=== PATIENT | male | born 1940 | race Caucasian/White ===

== ENCOUNTER 2017-11-22 19:43 | Inpatient (IN) | payer OTHER ==
--- NOTE | 2017-11-22 21:03 | EDPHY ---
H & P Stated Complaint: L hand swelling for 2 wks - Personal History Current Tetanus/Diphtheria Vaccine: Unsure Current Tetanus Diphtheria and Acellular Pertussis (TDAP): Unsure - Medical/Surgical History Hx Asthma: No Hx Chronic Respiratory Disease: No Hx Diabetes: No Hx Cardiac Disease: Yes Hx Renal Disease: No Hx Cirrhosis: No Hx Alcoholism: No Hx HIV/AIDS: No Hx Splenectomy or Spleen Trauma: No Other PMH: [id number] FUSION PROSTATE, HTN - Social History Smoking Status: Never smoked Time Seen by Provider: 11/22/17 21:00 HPI/ROS: CHIEF COMPLAINT: Left index finger swelling HISTORY OF PRESENT ILLNESS: 77-year-old immunocompetent male, up-to-date tetanus , left hand dominant states that starting on 11/04/2017 he noticed mild soft tissue swelling and pain to his left index finger, atraumatic. 3 days later on 11/07 he was started on Keflex monotherapy by his daughter who is a physician. He took this for 4 days and notes that it was improving and he therefore stopped the antibiotics. 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 PHYSICAL EXAM (Prior to examination, patient consented to physical exam, hands were washed and my usual and customary physical exam procedures followed) 1) GENERAL: Well-developed, well-nourished, alert and oriented. Appears to be in no acute distress. Comp, pleasant 2) HEAD: Normocephalic, atraumatic 3) HEENT: Pupils equal, round, reactive to light bilaterally. Sclera anicteric. 4) NECK: Full range of motion, no meningeal signs. 5) LUNGS: Clear auscultation bilaterally, no wheezes, no rhonchi, no retractions. 6) HEART: Regular rate and rhythm, no murmur, no heave, no gallop. 7) ABDOMEN: No guarding, no rebound, no focal tenderness, 8) MUSCULOSKELETAL: Left upper extremity: Patient has positive kanavel sign left index finger. Normal coloration, pain along the flexor tendon sheath, fusiform shape to the digit, pain with passive range of motion, finger kept slightly flexed 9) BACK: No visual or palpable abnormality 10) SKIN: No rash, no petechiae. DIFFERENTIAL DIAGNOSIS: In no particular include but limited to cellulitis, infectious tenosynovitis , septic arthritis, osteomyelitis (Yahaira,Fiorella Jayashree) Constitutional: Initial Vital Signs Temperature (C) 36.8 C 11/22/17 19:45 Heart Rate 55 L 11/22/17 19:45 Respiratory Rate 16 11/22/17 19:45 Blood Pressure 151/55 H 11/22/17 19:45 O2 Sat (%) 95 11/22/17 19:45 O2 Delivery Mode Room Air Allergies/Adverse Reactions: No Known Allergies Allergy (Unverified 05/16/14 23:14) Home Medications: Medication Instructions Recorded Cephalexin [Keflex (*)] 500 mg PO BID 11/23/17 Losartan Potassium [Cozaar 50 mg 100 mg PO HS 11/23/17 (*)] Sulfamethox/Tmp 800/160 mg 1 tab PO BID 11/23/17 [Bactrim Ds] Terazosin HCl [Hytrin 2 MG (*)] 2 mg PO HS 11/23/17 amLODIPine BESYLATE [Norvasc 5 mg 5 mg PO HS 11/23/17 (*)] Medical Decision Making ED Course/Re-evaluation: 9:10 p.m.: Patient has positive kanavel sign left index finger. Recommended admission to hospital. At this time I recommended admission to the hospital. Patient was surprised to hear this and requests time to make phone calls and discuss logistics before further interventions and before agreeing to admission. Patient also seen and examined by Dr Kaur in ER. 9:40 pm: Patient agrees to admission. 9:45 p.m.: Left voicemail for on-call hand surgery Dr. Tammy Villafana has been paged as well via the ER pilot plant research technician 10:05 pm: Hand surgery is paged again. 10:35 p.m.: No response from on-call hand surgery after multiple attempts. Dr. Agustín Puckett, on-call general orthopedics will be paged 1041 pm: Consultation with Dr Andre hospitalist who will admit patient primarily 10:58 p.m.: Patient noted to have pre renal azotemia. He has been given IV hydration while in the ER. 1107 pm: Phone consultation with Dr. Agustín Puckett , on-call orthopedics, who will have himself or have his partner evaluate the patient tomorrow. (Fiorella Syed) Other Provider: I evaluated and participated in the management of the patient. My co-signature indicates that I have reviewed this chart and I agree with thefindings and plan of care as documented. 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 Initially treated with keflex by mouth for 4 days with some improvment. Worsening pain and swelling today. No fever, erythema now resolved. On exam, left index finger has fusiform swelling, held in flexed position, discomfort along palmar aspect. Pain with extension. No erythema noted and no warmth. Sensation intact, brisk cap refill. Agree with plan for admission and hand consultation. Discussed my concerns and my recommendations with patient who agrees. (Giulia Kaur) - Data Points Laboratory Results: Laboratory Results 11/22/17 22:14 11/22/17 22:14 Medications Given: Cefazolin Sodium/Dextrose (Ancef 2 Gm (Premix)) 100 mls @ 200 mls/hr IV Q8HRS SANDI PRN Reason: Protocol Stop: 12/23/17 05:59 Last Admin: 11/23/17 05:31 Dose: 100 mls Sodium Chloride (Ns) 1,000 mls @ 125 mls/hr IV CONT SANDI Stop: 05/22/18 10:29 Last Admin: 11/23/17 10:47 Dose: 1,000 mls Oxycodone HCl (Oxycodone Ir) 5 - 10 mg PO Q3HRS PRN PRN Reason: Pain, Severe Able to Take PO Stop: 12/02/17 22:51 Last Admin: 11/23/17 02:15 Dose: 10 mg Discontinued Medications Cefazolin Sodium/Dextrose (Ancef 1 Gm (Premix)) 50 mls @ 200 mls/hr IV EDNOW ONE PRN Reason: Protocol Stop: 11/22/17 21:35 Last Admin: 11/22/17 22:41 Dose: 50 mls Sodium Chloride (Ns) 500 mls @ 0 mls/hr IV ONCE ONE PRN Reason: Wide Open Stop: 11/22/17 23:00 Last Admin: 11/23/17 00:10 Dose: 500 mls Departure - Departure Disposition: [facility] Acute Clinical Impression: Infectious tenosynovitis, Acute prerenal azotemia Condition: Fair
[2017-11-22 22:34] LABS: PLATELET COUNT 198 10^3/uL (150-400)
[2017-11-22] MEDS ORDERED: ONDANSETRON 4 MG/2 ML VIAL IVP PRN (22:52)
[2017-11-22] MEDS ORDERED: oxyCODONE IR 5 MG TAB PO PRN (22:52)
[2017-11-22] MEDS ORDERED: ONDANSETRON DISINTEGRATING 4 MG TAB PO PRN (22:52)
[2017-11-22] MEDS ORDERED: ACETAMINOPHEN 325 MG TAB PO PRN (22:52)
[2017-11-22] MEDS ORDERED: NS 500 ML IV ONE (22:59)
--- NOTE | 2017-11-23 04:40 | PDGENHP ---
History and Physical - Chief Complaint Hand swelling - History of Present Illness 77 yo M w/ BPH and CKD presents with hand swelling. Patient first noticed redness and swelling of L 2nd MCP around 11/04. He was prescribes Keflex as an outpatient, which he took for 4 days (last on 11/10). He did not finish the full prescribed course because he thought it improved significantly. Then, over the last few days, the swelling returned and spread to involve the palmar aspect of his hand and extended over to his 1st MCP as well. He denies systemic symptoms of infection. History Information - Allergies/Home Medication List Allergies/Adverse Reactions: No Known Allergies Allergy (Unverified 05/16/14 23:14) Home Medications: ATACAND 04/28/10 [Last Taken Unknown] Flomax 04/28/10 [Last Taken Unknown] I have personally reviewed and updated: family history, medical history - Past Medical History Additional medical history: BPH. CKD - Family History Positive for: cancer - Social History Smoking Status: Never smoked Review of Systems Review of Systems: ROS: 10pt was reviewed & negative except for what was stated in HPI & below Physical Exam Physical Exam: Temp Pulse Resp BP Pulse Ox 36.4 C 53 L 16 162/87 H 93 11/23/17 00:27 11/23/17 00:27 11/23/17 00:27 11/23/17 00:27 11/23/17 00:27 Constitutional: no apparent distress, not in pain Eyes: PERRL, EOMI Ears, Nose, Mouth, Throat: moist mucous membranes, no oral mucosal ulcers Cardiovascular: regular rate and rhythym, no murmur, rub, or gallop Respiratory: no respiratory distress, no rales or rhonchi Gastrointestinal: normoactive bowel sounds, soft, non-tender abdomen Skin: warm, other (Erythematous lesions over forehead and face R>L) Musculoskeletal: full muscle strength, other (Swelling and TTP involving L 2nd MCP with palmar extension to 1st digit) Neurologic: AAOx3, CN II-XII Intact Psychiatric: interacting appropriately, not anxious Lab Data & Imaging Review 11/22/17 22:14 11/22/17 22:14 WBC 9.53 10^3/uL (3.80-9.50) H 11/22/17 22:14 RBC 4.62 10^6/uL (4.40-6.38) 11/22/17 22:14 Hgb 13.0 g/dL (13.7-17.5) L 11/22/17 22:14 Hct 38.9 % (40.0-51.0) L 11/22/17 22:14 MCV 84.2 fL (81.5-99.8) 11/22/17 22:14 MCH 28.1 pg (27.9-34.1) 11/22/17 22:14 MCHC 33.4 g/dL (32.4-36.7) 11/22/17 22:14 RDW 15.1 % (11.5-15.2) 11/22/17 22:14 Plt Count 198 10^3/uL (150-400) 11/22/17 22:14 MPV 10.8 fL (8.7-11.7) 11/22/17 22:14 Neut % (Auto) 66.7 % (39.3-74.2) 11/22/17 22:14 Lymph % (Auto) 23.3 % (15.0-45.0) 11/22/17 22:14 [place]haw % (Auto) 8.4 % (4.5-13.0) 11/22/17 22:14 Eos % (Auto) 0.9 % (0.6-7.6) 11/22/17 22:14 Baso % (Auto) 0.4 % (0.3-1.7) 11/22/17 22:14 Nucleat RBC Rel Count 0.0 % (0.0-0.2) 11/22/17 22:14 Absolute Neuts (auto) 6.35 10^3/uL (1.70-6.50) 11/22/17 22:14 Absolute Lymphs (auto) 2.22 10^3/uL (1.00-3.00) 11/22/17 22:14 Absolute Monos (auto) 0.80 10^3/uL (0.30-0.80) 11/22/17 22:14 Absolute Eos (auto) 0.09 10^3/uL (0.03-0.40) 11/22/17 22:14 Absolute Basos (auto) 0.04 10^3/uL (0.02-0.10) 11/22/17 22:14 Absolute Nucleated RBC 0.00 10^3/uL (0-0.01) 11/22/17 22:14 Immature Gran % 0.3 % (0.0-1.1) 11/22/17 22:14 Immature Gran # 0.03 10^3/uL (0.00-0.10) 11/22/17 22:14 Sodium 138 mEq/L (134-144) 11/22/17 22:14 Potassium 5.2 mEq/L (3.5-5.2) 11/22/17 22:14 Chloride 104 mEq/L (97-110) 11/22/17 22:14 Carbon Dioxide 24 mEq/l (22-31) 11/22/17 22:14 Anion Gap 10 mEq/L (8-16) 11/22/17 22:14 BUN 33 mg/dL (7-23) H 11/22/17 22:14 Creatinine 1.5 mg/dL (0.7-1.3) H 11/22/17 22:14 Estimated GFR 45 11/22/17 22:14 Glucose 89 mg/dL (70-100) 11/22/17 22:14 Calcium 9.2 mg/dL (8.5-10.4) 11/22/17 22:14 Imaging Review: Imaging Impressions Hand X-Ray 11/22/17 20:55 Impression: Osteoarthritis. Assessment & Plan Assessment: 77 yo M w/ BPH and CKD presents with infection of L 2nd MCP. Plan: 1. L hand infection - Swelling and redness mostly involving L 2nd MCP now with some extension to first digit. Minimal signs of systemic involvement at this time. Hand XR unremarkable. - Cefazolin 2g IV q8h - Blood cultures ordered - Orthopedics consulted for further evaluation, appreciate assistance 2. CKD, Stage 3A - Essentially at baseline with serum creatinine of 1.5 on presentation. - Avoid nephrotoxic agents as able - Monitor BMP 3. BPH - On Flomax. Diet - Regular Code - Full Ppx - SCDs Dispo - Admit to observation status
[2017-11-23] MEDS: ceFAZolin 2 GM/DEXTROSE 100 ML IV SCH ×2 (05:31→13:42)
[2017-11-23 05:33] LABS: PLATELET COUNT 165 10^3/uL (150-400)
[2017-11-23] MEDS ORDERED: NS 1,000 ML IV SCH (10:30)
--- NOTE | 2017-11-23 10:35 | HOSPPROG ---
Hospitalist Progress Note Assessment/Plan: 77 yo M w hand infection hand: concerning for extensor tenosynovitis has had swelling for two weeks, rapidly progressive over last 24 hours cefazolin hand to see shortly NPO MRI per hand surgery ckd: cr at baseline proph: lmwh if in hospital longer than 24 hours pain: oxycodone dispo: change o inpatient Subjective: case d/w dr gonzalez, hand surrgery. patient anxious re: plan Objective: Vital Signs Temp Pulse Resp BP Pulse Ox 36.8 C 50 L 18 131/56 H 92 11/23/17 07:25 11/23/17 07:25 11/23/17 07:25 11/23/17 07:25 11/23/17 07:25 Laboratory Results 11/23/17 05:03 11/23/17 05:03 11/22/17 11/23/17 11/24/17 05:59 05:59 05:59 Intake Total 50 Balance 50 - Physical Exam Constitutional: no apparent distress, appears nourished Eyes: PERRL, anicteric sclera Ears, Nose, Mouth, Throat: moist mucous membranes, hearing normal Cardiovascular: regular rate and rhythym, no murmur, rub, or gallop Respiratory: no respiratory distress, no rales or rhonchi Gastrointestinal: normoactive bowel sounds, soft, non-tender abdomen Genitourinary: no bladder fullness, No smith in urethra Skin: warm, normal color Musculoskeletal: other (L hand w swelling over 2nd and third dp joints w severe pain w flexion and extension. no lymphangitic streaking) ICD10 Worksheet Patient Problems: Problems Problem Status Onset Acute prerenal azotemia Acute Infectious tenosynovitis Acute
[2017-11-23] MEDS ORDERED: GADOBUTROL 10 ML VIAL IVP ONE (11:40)
--- NOTE | 2017-11-23 11:52 | ASMTCASEMG ---
Living Arrangements What is your living Answers: Alone arrangement? Who do you live with? Type Of Residence What kind of residence do Answers: House you live in? Discharge Plan Comments Coordination Status Comments Notes: Pt is a 77 y/o man admitted with an infection tenosynovitis left index finger. Ortho is consulting. Pt will most likely d/c independent when medically stable. No therapies ordered at this time. CM available for changes. Plan: Independent Date Signed: 11/23/2017 11:51 AM Electronically Signed By:JAMES Peng
--- NOTE | 2017-11-23 15:31 | PDCONSULT ---
Typewriter Operator Automatic Note: Hand Surgery Consult The patient is a 77 year old male who complains of pain in his left hand off and on for approximately two weeks. He was initially placed on Keflex which he took for four days and was responding but discontinued them on his own. Over the last three days, he reports that his symptoms have become more intense with more swelling. The pain is migrating to his index and thumb. Hand Exam: He has a localized area of tenderness at the volar index MCP joint. He has mild tenderness along the flexor tendon sheath at the base of the MCP joint and proximalmost proximal phalanx. There is no fusiform edema in the thumb or index fingers. He has mild erythema, particularly over is dorsal index and long MCP joints.. He has mild edema most prominant on the dorsal hand. There is no fluctuance or induration in the palm, index fingers, or the thumb. He has normal flexor and extensor tenodesis. He has no sensory deficits. His hand, wrist and fingers are well perfused. He has a normal cascade. He has no gross rotation or angulation. There are no open wounds. Assessment/Plan; Delightful 77-year-old male who likely has a mild cellulitis versus possible gout. He does not have evidence of a fulminant flexor tenosynovitis. The pathophysiology of his possible conditions, normal course, and treatment options were discussed with him in detail. We will obtain an MRI to evaluate for fluid in the tendon sheath or another possible surgical conditions. In the meantime, we will keep him NPO with IV fluids. Addendum: The patient underwent an MRI which was consistent with a small abscess at the A1 jennie and a mild localized tenosynovitis around the index MCP joint and proximalmost proximal phalanx. The infectious disease service was called to manage his antibiotic coverage. If his symptoms worsen despite antibiotics or his exam is more significant in the morning, we will take him to surgery for an abscess drainage. In the meantime, the patient may be placed on a diet and made nothing by mouth after midnight. Thank you very much for the consultation. It is a pleasure to be involved in Mr. Donaldson's care.
--- NOTE | 2017-11-23 16:14 | PDMN ---
Medical Necessity Medical necessity: M70 cellulitis- ongoing IV abx needed for abscess/ tenosynovitis of index finger with poss abscess drainage needed in am, > 2 midnights ongoing med nec care
[2017-11-23] MEDS: VANCOMYCIN 750 MG in D5W 150 ML IV SCH (17:40)
[2017-11-23] MEDS ORDERED: ZOLPIDEM TARTRATE 5 MG TAB PO PRN (20:16)
[2017-11-23] MEDS: LOSARTAN POTASSIUM 50 MG TAB PO SCH (20:42)
[2017-11-23] MEDS: TERAZOSIN HCL 2 MG CAP PO SCH (20:42)
[2017-11-23] MEDS: amLODIPine BESYLATE 5 MG TAB PO SCH (20:42)
[2017-11-24] MEDS: VANCOMYCIN 750 MG in D5W 150 ML IV SCH ×2 (08:31→16:07)
--- NOTE | 2017-11-24 09:14 | PCMIDPN ---
Assessment/Plan: # Left hand cellulitis, tenosynovitis and small abscess adjacent to the volar aspect of the tendon sheath of the 2nd MCP joint, decreased pain today but still with significant swelling of the dorsal and volar aspect of the hand including the 2nd digit. --the continue vancomycin 750 mg IV daily --check trough before 3rd dose due to low renal function --surgery to re-assess need for surgery this afternoon, but strongly suspect will need debridement for resolution --discussed need for IV antibiotics following discharge and PICC line # renal insufficiency with a history of difficulty voiding, creatinine clearance in the 30 --check renal ultrasound with a postvoid residual meds vancomycin 750mg IV daily #2 micro blood cx (2) NGTD Subjective: Reports pain is about 20% improved Feeling stir crazy Objective: Vital Signs Temp Pulse Resp BP Pulse Ox 36.7 C 52 L 18 109/58 L 93 11/24/17 07:22 11/24/17 07:22 11/24/17 07:22 11/24/17 07:22 11/24/17 07:22 Laboratory Results 11/24/17 05:42 11/23/17 11/24/17 11/25/17 05:59 05:59 05:59 Intake Total 600 Balance 600 C-Reactive Protein < 5.0 mg/L (<10.0) 11/23/17 15:54 - Physical Exam General Appearance: alert, no apparent distress Respiratory: No accessory muscle use Extremities: swelling (Left hand particularly with 2nd digit and dorsal surface over 2nd and 3rd MCP joints), erythema (Over dorsal surface of 2nd and 3rd MCP joints), other (Tenderness at the base of the 2nd digit, volar surface slight improvement) Neuro/Psych: alert, normal mood/affect, oriented x 3 - Time Spent With Patient Time Spent with Patient: greater than 35 minutes (Coordination of care with Dr. Elaine and Dr. Quiñonez. Dr. Shelby Curtis his [id number] was also contacted) Time Spent with Patient: Greater than 35 minutes spent on this patients care, greater than 50% of time spent counseling, educating, and coordinating care regarding the above mentioned plan. ICD10 Worksheet Patient Problems: Problems Problem Status Onset Acute prerenal azotemia Acute Infectious tenosynovitis Acute
--- NOTE | 2017-11-24 09:23 | HOSPPROG ---
Hospitalist Progress Note Assessment/Plan: 77 yo M w hand infection hand: MRI w small abscess on flexor tendon as well as flexor tenosynovitis, myositis of thenar muscles and joint effusion concerning for joint space infection this is c/w exam continue vancomycin will d/w hand surgery- this clinical scenario appears to be a clear indication for surgery ckd: cr at baseline proph: lmwh if in hospital longer than 24 hours pain: oxycodone dispo: change o inpatient Subjective: case d/w dr way. hand perhaps a bit better but still unable to flex first finger Objective: Vital Signs Temp Pulse Resp BP Pulse Ox 36.7 C 52 L 18 109/58 L 93 11/24/17 07:22 11/24/17 07:22 11/24/17 07:22 11/24/17 07:22 11/24/17 07:22 Laboratory Results 11/24/17 05:42 11/23/17 11/24/17 11/25/17 05:59 05:59 05:59 Intake Total 600 Balance 600 - Physical Exam Constitutional: no apparent distress, appears nourished Eyes: PERRL, anicteric sclera Ears, Nose, Mouth, Throat: moist mucous membranes, hearing normal Cardiovascular: regular rate and rhythym, no murmur, rub, or gallop Respiratory: no respiratory distress, no rales or rhonchi Gastrointestinal: normoactive bowel sounds, soft, non-tender abdomen Genitourinary: no bladder fullness, No smith in urethra Skin: warm, normal color, mottled Musculoskeletal: other (edematous dorsum of hand. inability to flex secomd ( index) finger. no lymphangitic streaking) Neurologic: AAOx3, sensation intact bilaterally ICD10 Worksheet Patient Problems: Problems Problem Status Onset Acute prerenal azotemia Acute Infectious tenosynovitis Acute
--- NOTE | 2017-11-24 09:59 | GCON ---
[f rep st] CONSULTATION INFECTIOUS DISEASE CONSULTATION PROVIDER REQUESTING CONSULTATION: Tammy Villafana MD. REASON FOR CONSULTATION: Is left hand infection. HISTORY OF PRESENT ILLNESS: This is a 77-year-old left-hand dominant male who is in generally good h ealth who presents with progressive left hand pain. Patients problems date back to 04 of November w hen he noticed left index finger pain. He subsequently requested assistance from his family member wh o is a physician, and they prescribed Keflex plus prednisone on 07 of November. After approximately 3-4 days, patient stopped taking the therapy because his symptoms improved. He did continue to have some index finger swelling, but 3 days ago, he had markedly increased pain on the dorsal, palmar, and thumb, as well as associated swelling. He did describe chills on admission 11/22/17. The patient was admitted to the hospital and started on cefazolin and Hand Surgery was consulted. MRI was subsequent ly performed which showed cellulitis of the 2nd and 3rd metacarpal joints and proximal phalanx, more prominent on the 2nd. There is also myositis of the thenar musculature and mild tenosynovitis of the flexor digitorum longus at the 2nd finger with an adjacent volar abscess to the tendon sheath at the level of the 2nd metacarpal phalangeal joint and proximal phalanx, mild joint effusion as well at the 2nd MCP. ID was consulted for antibiotic management. The patient reports no improvement in his hand since admission. Has received 2 doses of cefazolin. Patient adamantly denies any specific injuries or bites to his hands. PAST MEDICAL HISTORY: BPH, chronic renal insufficiency with a creatinine clearance around 40, hypert ension, and thyromegaly. PAST SURGICAL HISTORY: Right knee surgery, lumbar surgery, rotator cuff repair bilaterally. SOCIAL HISTORY: Two children. His son is to a provider in [employer]. No tobacco. He is . He has a dog. Exercises regularly. In fact, he is an avid skier, runner, and biker. 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 FAMILY HISTORY: Positive for lung and prostate cancer. ALLERGIES: GEREMIAS inhibitors cause a cough. REVIEW OF SYSTEMS: A complete 10-point review of systems was performed and is negative except as men tioned in HPI. PHYSICAL EXAM: BP 149/62, heart rate 46, respiratory rate 18, saturation 97% on room air, temperatur e he has been afebrile throughout his hospital course, T-max is 36.7. GENERAL: This is a pleasant, no ntoxic-appearing male, sitting in bed in no acute distress. HEENT: Pupils are reactive bilaterally. O ropharynx: Moist mucous membranes. Good dentition. NECK: Supple. No lymphadenopathy. CARDIOVASCULAR: Bradycardic. No murmurs. CHEST: Clear to auscultation bilaterally. ABDOMEN: Soft, nontender. Bowel so unds are present. EXTREMITIES: No clubbing, cyanosis, or edema for the exception of his left hand swe lling which he had some generalized hand swelling, but most prominent over the 1st and 2nd digits and over the 2nd and 3rd MCPs with significant tenderness on the palmar surface at the base of his 2nd f matthew. No fluctuance is determined. His range of motion of his wrist is intact. He has a limited rang e of motion of his 2nd MCP. Pulses are bounding at the radial position. NEUROLOGIC: He is alert and o riented x4. Moving all 4 extremities equally with fluent speech. LABORATORY: Initial white count 9.3, today 6.9; hematocrit 33, platelets of 165, 56% neutrophils, 31 % lymphocytes. Creatinine is at his baseline 1.4. Blood cultures were obtained on admission. IMAGING: As per HPI. ASSESSMENT AND PLAN: This is a 77-year-old male with chronic renal insufficiency, otherwise healthy and very active, who presents with left hand cellulitis, volar abscess at the base of the 2nd digit, as well as possible septic arthritis of the 2nd MCP. Certainly, initially in the differential diagnos is was gout, but abscess in the volar surface/as well as myositis makes this unlikely. The patient do es not remember the last time he received antibiotics and it has been years, has low risk for MRSA, b ut abscess formation more suggestive of Staph. Therefore, to cover all possibilities, we will transit ion to vancomycin. In addition, would elevate hand. I suspect patient will likely need debridement, b ut awaiting 24 hours of antibiotics and elevation and reassess in the morning after discussion with Bertha vides. Suspect the portal of entry has to do with likely multiple skin tears in the hand. Patient's pathogenesis of infection, including skin tears, primary pathogens of staph and strep, juan manuel tment, potential need for surgery, and continued hospitalization past 24 hours were all discussed wit h patient extensively. Also discussed the plan of care with patient's [id number] per his request . Time was 75 minutes with greater than 50% of the time spent with education and counseling as describe d above. In addition, extensively reviewed potential toxicities of vancomycin and renal dosing, as we ll as measurement of levels. Thank you for this consultation. We will continue to see on a daily basis. /[id number]/MODL
[2017-11-24] MEDS: LOSARTAN POTASSIUM 50 MG TAB PO SCH (20:17)
[2017-11-24] MEDS: amLODIPine BESYLATE 5 MG TAB PO SCH (20:17)
[2017-11-24] MEDS: TERAZOSIN HCL 2 MG CAP PO SCH (20:17)
[2017-11-25] MEDS ORDERED: ENOXAPARIN 30 MG/0.3 ML SYR SC SCH (09:00)
--- NOTE | 2017-11-25 09:09 | PCMIDPN ---
Assessment/Plan: # Left hand cellulitis, tenosynovitis and small abscess adjacent to the volar aspect of the tendon sheath of the 2nd MCP joint and possible septic arthritis 2nd MCP joint, some decreased swelling noted today but still remarkable tenderness over flexor tendon of 2nd digit --still suspect that surgery needed to completely resolve infection, have requested 2nd opinion from Dr. Puckett --continue vancomycin, check trough today # renal insufficiency with a history of difficulty voiding, creatinine clearance in the 30, Cr stable today. US showed mild hydro and large prostate --urology eval as outpatient meds vancomycin 750mg IV daily #3 micro blood cx (2) NGTD Subjective: slept well last night no diarrhea Slight improvement in hand pain Objective: Vital Signs Temp Pulse Resp BP Pulse Ox 36.9 C 43 L 16 131/57 H 94 11/25/17 07:26 11/25/17 07:26 11/25/17 07:26 11/25/17 07:26 11/25/17 07:26 Laboratory Results 11/25/17 04:52 11/24/17 11/25/17 11/26/17 05:59 05:59 05:59 Intake Total 600 750 Balance 600 750 C-Reactive Protein < 5.0 mg/L (<10.0) 11/23/17 15:54 General Appearance: alert, no apparent distress Respiratory: No accessory muscle use Extremities:Left hand swelling and erythema particularly with 2nd digit and dorsal surface over 2nd and 3rd MCP joints but 30% improved today, Tenderness at the base of the 2nd digit, and significant tenderness on along the flexor surface of 2nd digit Neuro/Psych: alert, normal mood/affect, oriented x 3 - Time Spent With Patient Time Spent with Patient: greater than 35 minutes (including coordinating care with Dr. Elaine) Time Spent with Patient: Greater than 35 minutes spent on this patients care, greater than 50% of time spent counseling, educating, and coordinating care regarding the above mentioned plan. ICD10 Worksheet Patient Problems: Problems Problem Status Onset Acute prerenal azotemia Acute Infectious tenosynovitis Acute
--- NOTE | 2017-11-25 10:26 | ASMTCMCOM ---
CM Note CM Note Notes: Dc needs still unclear, may have surgery and/or need IV abx. CM faxed referral to [facility] to run benefits. Patient is otherwise independent. DC Plan: TBD Date Signed: 11/25/2017 10:25 AM Electronically Signed By:Astrid Painter RN
--- NOTE | 2017-11-25 11:34 | HOSPPROG ---
Hospitalist Progress Note Assessment/Plan: 77 yo M w hand infection hand: MRI w small abscess on flexor tendon as well as flexor tenosynovitis, myositis of thenar muscles and joint effusion concerning for joint space infection this is c/w exam continue vancomycin will d/w hand surgery- this clinical scenario appears to be a clear indication for surgery patient and family request second opinion believing that surgical management is indicated ckd: cr at baseline proph: start lmwh 11/26 pain: oxycodone dispo: change to inpatient Subjective: case d/w dr way. still w inabilty to flex finger Objective: Vital Signs Temp Pulse Resp BP Pulse Ox 36.9 C 43 L 16 131/57 H 94 11/25/17 07:26 11/25/17 07:26 11/25/17 07:26 11/25/17 07:26 11/25/17 07:26 Laboratory Results 11/25/17 04:52 11/24/17 11/25/17 11/26/17 05:59 05:59 05:59 Intake Total 600 750 Balance 600 750 - Physical Exam Constitutional: no apparent distress, appears nourished Eyes: PERRL, anicteric sclera Ears, Nose, Mouth, Throat: moist mucous membranes, hearing normal Cardiovascular: regular rate and rhythym, no murmur, rub, or gallop Respiratory: no respiratory distress, no rales or rhonchi Gastrointestinal: normoactive bowel sounds, soft, non-tender abdomen Genitourinary: no bladder fullness, No smith in urethra Skin: warm, normal color Musculoskeletal: full muscle strength, other (hand w less erythema and swelling but finger unchanged. still w evidence of flexor tenosynovitis) Neurologic: AAOx3 Psychiatric: interacting appropriately, not anxious ICD10 Worksheet Patient Problems: Problems Problem Status Onset Acute prerenal azotemia Acute Infectious tenosynovitis Acute
[2017-11-25] MEDS ORDERED: LIDOCAINE 1% 300 MG/30 ML SDV ONE (12:44)
[2017-11-25] MEDS ORDERED: BACITRACIN ZINC 14.2 GM OINTTUBE TP ONE (12:44)
[2017-11-25] MEDS ORDERED: BUPIVACAINE 0.5% 30 ML SDV ONE (12:45)
[2017-11-25] MEDS ORDERED: LR 1,000 ML IV ONE (13:20)
--- NOTE | 2017-11-25 13:24 | PDANEPAE ---
ANE History of Present Illness I&D of L hand ANE Past Medical History - Cardiovascular History Hx Hypertension: Yes Hx Arrhythmias: No Hx Chest Pain: No Hx Coronary Artery / Peripheral Vascular Disease: No - Pulmonary History Hx COPD: No Hx Oxygen in Use at Home: No Hx Sleep Apnea: No Sleep Apnea Screening Result - Last Documented: Positive - Endocrine History Hx Diabetes: No Hypothyroid: No Hyperthyroid: No Obesity: no - Renal History Hx Renal Disorders: Yes Renal History Comment: chronic kidney disease - Liver History Hx Hepatic Disorders: No - Neurological & Psychiatric Hx Hx Neurological and Psychiatric Disorders: No - Cancer History Hx Cancer: No - GI History GERD: no Hx Gastrointestinal Disorders: No - Other Health History Other Health History: BPH - Chronic Pain History Chronic Pain: No - Surgical History Prior Surgeries: shoulders, knee, back surgery ANE Review of Systems Review of Systems: ANE Patient History - Allergies Allergies/Adverse Reactions: No Known Allergies Allergy (Unverified 05/16/14 23:14) - Home Medications Home Medications: Cephalexin [Keflex (*)] 500 mg PO BID 11/23/17 [Last Taken 11/22/17 09:00] Losartan Potassium [Cozaar 50 mg (*)] 100 mg PO HS 11/23/17 [Last Taken 11/21/17 ] Sulfamethox/Tmp 800/160 mg [Bactrim Ds] 1 tab PO BID 11/23/17 [Last Taken Unknown] Terazosin HCl [Hytrin 2 MG (*)] 2 mg PO HS 11/23/17 [Last Taken 11/21/17] amLODIPine BESYLATE [Norvasc 5 mg (*)] 5 mg PO HS 11/23/17 [Last Taken 11/21/17] - NPO status NPO Since - Liquids (Date): 11/24/17 NPO Since - Liquids (Time): 21:00 NPO Since - Solids (Date): 11/24/17 NPO Since - Solids (Time): 21:00 - Smoking Hx Smoking Status: Never smoked ANE Labs/Vital Signs - Labs Result Diagrams: 11/23/17 05:03 11/25/17 04:52 - Vital Signs Blood Pressure: 146/67 Heart Rate: 57 Respiratory Rate: 16 O2 Sat (%): 97 Height: 165.1 cm Weight: 61.235 kg ANE Physical Exam - Airway Neck exam: FROM Mallampati Score: Class 1 - Pulmonary Pulmonary: no respiratory distress - Cardiovascular Cardiovascular: regular rate and rhythym - ASA Status ASA Status: II ANE Anesthesia Plan Anesthesia Plan: GA w LMA
[2017-11-25] MEDS ORDERED: MIDAZOLAM 2 MG/2 ML VIAL IVP ONE (13:28)
[2017-11-25] MEDS ORDERED: MIDAZOLAM 2 MG/2 ML VIAL ONE (13:30)
[2017-11-25] MEDS ORDERED: PROPOFOL 200 MG/20 ML VIAL ONE ×2 (13:36→14:12)
[2017-11-25] MEDS ORDERED: fentaNYL 100 MCG/2 ML INJ ONE ×2 (13:36→14:28)
[2017-11-25] MEDS ORDERED: ONDANSETRON 4 MG/2 ML VIAL ONE (13:38)
[2017-11-25] MEDS ORDERED: DEXAMETHASONE 4 MG/ML VIAL ONE (13:38)
[2017-11-25] MEDS ORDERED: LR 1,000 ML IV SCH (14:00)
[2017-11-25] MEDS ORDERED: CHLORHEXIDINE GLUC HIBICLENS 118 ML BTL TP ONE (14:00)
--- NOTE | 2017-11-25 14:44 | GCON ---
[f rep st] CONSULTATION DATE OF CONSULTATION: 11/25/2017 ADMIT DIAGNOSIS: Flexor tenosynovitis, left index finger. 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 This was persistent and on , he was started on Keflex by his daughter who is a physician. He took this for 4 days approximat christiane and noticed that it was slightly improving and subsequently stopped the antibiotics. He did cont inue to have swelling. The day prior to presentation, he had the acute onset of swelling, pain and p rogression into his palm with large swelling to his finger, limited range of motion and sharp pain wi th direct pressure over his palm. He therefore presented to the emergency department for further eval uation. PAST MEDICAL HISTORY: He has BPH. SURGICAL HISTORY: See chart. MEDICATIONS: Flomax and Atacand. 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 REVIEW OF SYSTEMS: Negative for current chest pain, shortness of breath, belly pain, back pain, numb ness, tingling, other joint-related complaints. PHYSICAL EXAMINATION: GENERAL: Objectively, this is a healthy gentleman seated in the bedside chair , pleasant and cooperative with examination. VITAL SIGNS: Current vital signs demonstrate a blood p ressure 146/67, heart rate is 57, he is 97% oxygen saturation, his temperature is 36.5. EXTREMITIES: Examination of his left upper extremity reveals two abrasions that are healing over the dorsal surfac e of his index finger across the proximal phalanx. There is fusiform swelling of the finger. It is he ld in a slightly flexed position. He has blanching of the superficial skin with any active flexion. He is capable of active flexion of his digit with 10 degrees flexion at the MCP, 30 degrees flexion a t the PIP and 20 degrees of flexion at the DIP joint. This is associated with mild discomfort across his palm. He has no other swelling to his thumb, long, ring or small fingers. He has slight swelli ng in the palm at the distal palmar crease along the index finger and through the thenar eminence. H e has focal tenderness at the entrance to the flexor tendon sheath of his index finger. This tendern ess extends down the flexor tendon to the level of the PIP joint. There is no tenderness dorsally. T here is no lymphangitic streaking or erythema. IMAGING STUDIES: An MRI obtained on 11/23, is reviewed and demonstrates cellulitis through his index and long finger through the proximal hand and palmar crease up into the thenar area where there is a ssociated myositis. There is mild tenosynovitis of the flexor tendon longus at the 2nd finger with a n adjacent abscess on the volar tendon sheath and there is a joint effusion of the 2nd metacarpophala ngeal joint. IMPRESSION: Flexor tenosynovitis with hand abscess. TREATMENT PLAN: He has been under the recommendations of a hand surgeon, Dr. Tammy Villafana, who has ma naged this with IV antibiotics with the assistance of Infectious Disease. The surrounding cellulitis and swelling have improved. His pain has improved. His range of motion has improved. However, give n the presence of an absence on the MRI and focal tenderness at the entrance to his flexor sheath, I still believe he has a clinical diagnosis of flexor tenosynovitis. I would recommend operative inter vention with irrigation and debridement, and additional IV antibiotics as appropriate. I have discuss ed this with the patient's hospitalist, Dr. Mandeep Elaine. I will discuss this with Dr. Tammy Villafana. ADDENDUM: I had initially set the patient up for operative irrigation and debridement, and Dr. Villafana has now been involved and will proceed with the debridement herself. /[id number]/MODL
--- NOTE | 2017-11-25 15:52 | SUROPNOTE ---
[facility] Operative Report - Surgery Operative Report Preop Diagnosis: Palmar flexor tenosynovitis left index finger Postop Diagnosis: Same Surgeon: Dr. Villafana Anesthesia: General Complications: None Findings: 1. Localized Tenosynovitis of the Left Index Finger at the A1 jennie 2. Inflammation of the soft tissue of the left palm and volar index at the level of the proximal phalanx Disposition: Stable to the recovery room Procedure Note: The patient was placed in supine position. General anesthesia was administered. Patient was prepped and draped in the usual sterile fashion. An Esmarch was used to exsanguinate the upper extremity and the tourniquet was applied to 250 mmHg. An oblique incision was made over the area of localized tenderness in the left palm. The soft tissue was bluntly dissected down to the flexor tendon sheath. The tendons were bathed in approximately 0.2 cc of murky fluid. The fluid was cultured and then flushed out with 200 cc of sterile saline. A full exploration was performed and no christi abscess was identified. The tendon sheath of the index finger was found to have a localized area of thickened tenosynovium just distal to the A1 jennie. This was excised and sent for pathology. A full tenolysis was performed in the involved area and the A1 jennie was released. An oblique incision was then made over the proximal phalanx of the index finger. The soft tissue was bluntly dissected down to the flexor tendon sheath. Some inflammatory changes were noted in the soft tissue at the level of the A2 jennie along with scant fluid. This was similarly flushed out with normal saline. The sheath and tendons were found to be free of inflammatory changes and no fluid was identified in the flexor tendon sheath. An 18-gauge Angiocath was introduced into the tendon sheath, which was thoroughly flushed in all directions with 1000 cc of normal saline. The fluid from the washout was clear. Finally, the volar MCP joint capsule was explored. No abnormal fluid, inflammatory changes, or other pathology was identified. Both wounds were closed loosely with interrupted 5-0 nylon. Bacitracin Xeroform were applied, followed by a dry sterile dressing. The patient tolerated the procedure well. His fingers were noted to be pink and well perfused at the end of the procedure. His disposition was stable to the recovery room.
[2017-11-25] MEDS ORDERED: VANCOMYCIN 1 GM in D5W 250 ML IV SCH (17:00)
[2017-11-25] MEDS: VANCOMYCIN 750 MG in D5W 150 ML IV SCH (17:15)
--- NOTE | 2017-11-25 17:38 | PDIAF ---
- Diagnosis Diagnosis: Tenosynovitis L 2nd digit Code Status: Full Code - Medication Management Discharge Medications: Medications to Continue on Transfer Cephalexin [Keflex (*)] 500 mg PO BID 11/23/17 [Last Taken 11/22/17 09:00] Losartan Potassium [Cozaar 50 mg (*)] 100 mg PO HS 11/23/17 [Last Taken 11/21/17 ] Sulfamethox/Tmp 800/160 mg [Bactrim Ds] 1 tab PO BID 11/23/17 [Last Taken Unknown] Terazosin HCl [Hytrin 2 MG (*)] 2 mg PO HS 11/23/17 [Last Taken 11/21/17] amLODIPine BESYLATE [Norvasc 5 mg (*)] 5 mg PO HS 11/23/17 [Last Taken 11/21/17] Prison Antibiotics: Vancomycin 1gm IV daily Communications Strategist Antibiotic Stop Date: 12/03/17 Discharge Medications: Refer to the Discharge Home Medication list for PRN reason. PICC Care - Routine: Yes - Orders Isolation Type: Chemotherapy Isolation - Labs/Radiology BMP Date: 12/02/17 CBC w/diff Date: 11/29/17 CMP Date: 11/29/17 Vanco Trough Date and Time: 11/29/17 and 12/02/17 Call or Fax Lab and Imaging Results to: Cristina Sheppard MD [facility] at fax [phone] - Follow Up Care Current Providers and Referrals: Ney Munroe MD [Primary Care Provider] - As per Instructions Cristina Sheppard MD [Medical Doctor] - 12/03/17 9:00 am
[2017-11-25 19:41] VITALS: RESP 16
[2017-11-25] MEDS: LOSARTAN POTASSIUM 50 MG TAB PO SCH (20:16)
[2017-11-25] MEDS: amLODIPine BESYLATE 5 MG TAB PO SCH (20:16)
[2017-11-25] MEDS: TERAZOSIN HCL 2 MG CAP PO SCH (20:16)
[2017-11-26 07:48] VITALS: PULSE 55
--- NOTE | 2017-11-26 08:47 | PDIAF ---
- Diagnosis Diagnosis: Tenosynovitis L 2nd digit Code Status: Full Code - Medication Management Discharge Medications: Medications to Continue on Transfer Cephalexin [Keflex (*)] 500 mg PO BID 11/23/17 [Last Taken 11/22/17 09:00] Losartan Potassium [Cozaar 50 mg (*)] 100 mg PO HS 11/23/17 [Last Taken 11/21/17 ] Sulfamethox/Tmp 800/160 mg [Bactrim Ds] 1 tab PO BID 11/23/17 [Last Taken Unknown] Terazosin HCl [Hytrin 2 MG (*)] 2 mg PO HS 11/23/17 [Last Taken 11/21/17] amLODIPine BESYLATE [Norvasc 5 mg (*)] 5 mg PO HS 11/23/17 [Last Taken 11/21/17] Pen[facility]iary Antibiotics: Vancomycin 1.25gm IV daily [employer] Librarian Antibiotic Stop Date: 12/03/17 Discharge Medications: Refer to the Discharge Home Medication list for PRN reason. PICC Care - Routine: Yes - Orders Isolation Type: Chemotherapy Isolation - Labs/Radiology BMP Date: 12/02/17 CBC w/diff Date: 11/29/17 CMP Date: 11/29/17 Creatinine Date: 11/27/17 Vanco Trough Date and Time: 11/27/17, 11/29/17 and 12/02/17 Call or Fax Lab and Imaging Results to: Cristina Sheppard MD [facility] at fax [phone] - Follow Up Care Current Providers and Referrals: Ney Munroe MD [Primary Care Provider] - As per Instructions Cristina Sheppard MD [Medical Doctor] - 12/01/17 10:00 am
--- NOTE | 2017-11-26 11:05 | HOSPPROG ---
Hospitalist Progress Note Assessment/Plan: 77 yo M w hand infection hand: MRI w small abscess on flexor tendon as well as flexor tenosynovitis, myositis of thenar muscles and joint effusion concerning for joint space infection this is c/w exam continue vancomycin will d/w hand surgery- this clinical scenario appears to be a clear indication for surgery patient and family request second opinion believing that surgical management is indicated ckd: cr at baseline mild R hydronephrosis w cortical thinning noted cr stable X 10 years rec'd outpt urology follow up proph: start lmwh 11/26 pain: oxycodone dispo: home today > 30 minutes Subjective: s/p I and D. case d/w dr way Objective: Vital Signs Temp Pulse Resp BP Pulse Ox 36.4 C 55 L 16 120/64 94 11/26/17 07:48 11/26/17 07:48 11/26/17 07:48 11/26/17 07:48 11/26/17 07:48 Microbiology 11/25/17 14:11 Gram Stain - Final Hand - Tissue 11/25/17 14:11 Gram Stain - Final Hand - Eswab 11/25/17 14:11 Mycobacterial Smear (MADHAVI) - Final Hand - Eswab Mycobacterial Culture - Final Laboratory Results 11/25/17 04:52 11/25/17 11/26/17 11/27/17 05:59 05:59 05:59 Intake Total 750 1090 Output Total 800 400 Balance 750 290 -400 - Physical Exam Constitutional: no apparent distress, appears nourished Eyes: PERRL, anicteric sclera Ears, Nose, Mouth, Throat: moist mucous membranes, hearing normal Cardiovascular: regular rate and rhythym, no murmur, rub, or gallop Respiratory: no respiratory distress, no rales or rhonchi Gastrointestinal: normoactive bowel sounds, soft, non-tender abdomen Genitourinary: no bladder fullness, No smith in urethra Skin: warm, normal color Musculoskeletal: full muscle strength, no muscle tenderness Neurologic: AAOx3 Psychiatric: interacting appropriately Lymph, Heme, Immunologic: no cervical LAD ICD10 Worksheet Patient Problems: Problems Problem Status Onset Acute prerenal azotemia Acute Infectious tenosynovitis Acute
[2017-11-26 12:00] VITALS: BP 137/73; TEMP 97.8; O2SAT 96
[2017-11-26] MEDS ORDERED: VANCOMYCIN 1.25 GM in D5W 250 ML IV SCH (12:30)
--- NOTE | 2017-11-26 13:49 | PCMIDPN ---
Assessment/Plan: # Left hand cellulitis, tenosynovitis and small abscess adjacent to the volar aspect of the tendon sheath of the 2nd MCP joint s/p washout where septic arthritis was not identified. --adjust dose of vancomycin for low trough yesterday. Cr may be higher than expected due to muscle mass. Increase to vancomycin 1.25gm IV qday --check trough tomorrow --follow up in clinic with me on Wednesday --care coordinated with Dr. Elaine and case management # renal insufficiency with a history of difficulty voiding, creatinine clearance in the 30, Cr stable today. US showed mild hydro and large prostate --urology eval as outpatient meds vancomycin 1gm IV daily #4 micro blood cx (2) NGTD 11/25/17 14:11 Hand - Tissue Gram Stain - neg; CX NGTD 11/25/17 14:11 Hand - Eswab Gram Stain - neg: Cx NGTD Subjective: feeling well Objective: Vital Signs Temp Pulse Resp BP Pulse Ox 36.6 C 55 L 16 137/73 H 96 11/26/17 11:59 11/26/17 11:59 11/26/17 11:59 11/26/17 11:59 11/26/17 11:59 Microbiology 11/25/17 14:11 Gram Stain - Final Hand - Eswab 11/25/17 14:11 Gram Stain - Final Hand - Tissue 11/25/17 14:11 Mycobacterial Smear (MADHAVI) - Final Hand - Tissue 11/25/17 14:11 Mycobacterial Smear (MADHAVI) - Final Hand - Eswab Mycobacterial Culture - Final Laboratory Results 11/25/17 04:52 11/25/17 11/26/17 11/27/17 05:59 05:59 05:59 Intake Total 750 1090 Output Total 800 400 Balance 750 290 -400 C-Reactive Protein < 5.0 mg/L (<10.0) 11/23/17 15:54 - Physical Exam General Appearance: alert, no apparent distress EENT: No scleral icterus Respiratory: No accessory muscle use Extremities: other (Dressing in place L hand, no arm edema) Neuro/Psych: alert, normal mood/affect - Time Spent With Patient Time Spent with Patient: greater than 35 minutes (reviewing risk benefits, IV antibiotics, plans for coordinating IV therapy, follow up) Time Spent with Patient: Greater than 35 minutes spent on this patients care, greater than 50% of time spent counseling, educating, and coordinating care regarding the above mentioned plan. ICD10 Worksheet Patient Problems: Problems Problem Status Onset Acute prerenal azotemia Acute Infectious tenosynovitis Acute
--- NOTE | 2017-11-26 14:21 | ASMTCMCOM ---
CM Note CM Note Notes: Pt requests letter stating that he was hospitalized. Letter written and delivered to pt. DC Plan: Outpt infusion Date Signed: 11/26/2017 02:21 PM Electronically Signed By:Astrid Painter RN
[2017-11-26] MEDS ORDERED: VANCOMYCIN 1 GM in NS 250 ML IV SCH (17:00)
[2017-11-26] MEDS ORDERED: VANCOMYCIN HCL/NORMAL SALINE 250 ML IV SCH (17:00)
--- NOTE | 2017-11-26 17:41 | ASDISCHSUM ---
Discharge Information Plan Status:Home with No Needs Medically Cleared to Leave: Discharge Date:11/26/2017 03:00 PM CM D/C Disposition:Home, Routine, Self-Care ADT D/C Disposition:Home, Routine, Self-Care Projected Discharge Date:11/27/2017 11:00 AM Transportation at D/C:Self Discharge Delay Reason: Follow-Up Date:11/27/2017 11:00 AM Discharge Slot: Final Diagnosis: Placement Information Referral Type:Home Infusion Referral ID:[id number] Provider Name: Address 1: Phone Number: Address 2: Fax Number: [facility]: [facility] Factors: State: Patient Contact Information Contact Name:SARA Relationship:Son Address: Work Phone: [facility] Phone: [facility] Code:[place] Email: Financial Information Financial Class:Medicare Advantage Plans Primary Plan Desc:[facility] [employer] Primary Plan Number:[id number] Secondary Plan Desc: Secondary Plan Number: Assessment Information [facility] Initial CM Assessment Living Arrangements What is your living Answers: Alone arrangement? Who do you live with? Type Of Residence What kind of residence do Answers: House you live in? Discharge Plan Comments Coordination Status Comments Notes: Pt is a 77 y/o man admitted with an infection tenosynovitis left index finger. Ortho is consulting. Pt will most likely d/c independent when medically stable. No therapies ordered at this time. CM available for changes. Plan: Independent Date Signed: 11/23/2017 11:51 AM Electronically Signed By:JAMES Peng [facility] CM Progress Note CM Note CM Note Notes: Dc needs still unclear, may have surgery and/or need IV abx. CM faxed referral to [facility] to run benefits. Patient is otherwise independent. DC Plan: TBD Date Signed: 11/25/2017 10:25 AM Electronically Signed By:Astrid Painter RN BC CM Progress Note CM Note CM Note Notes: Pt requests letter stating that he was hospitalized. Letter written and delivered to pt. DC Plan: Outpt infusion Date Signed: 11/26/2017 02:21 PM Electronically Signed By:Astrid Painter RN Intervention Information Intervention Type:*TEJAS-Signed Date of Service:11/23/2017 10:26 AM Patient Type:Observation Staff Member:Sana Astudillo Hours: Discipline: Severity: Comment:
--- NOTE | 2017-11-26 22:15 | GDS ---
[f rep st] DISCHARGE SUMMARY DISCHARGE DIAGNOSES: 1. Left upper extremity cellulitis with flexor tenosynovitis and abscess formation. 2. Benign prostatic hypertrophy. 3. Right-sided hydronephrosis. HOSPITAL COURSE: Please see admission history and physical by Dr. Warren Andre. The patient presented with a swollen left upper extremity. He was seen by Hand Surgery, who obtained an MRI, wh ich demonstrated an abscess in the volar surface of the right second flexor tendon. Hand Surgery deepa tony opted to follow an observation strategy, which was concerning to the medical and infectious [facility] team. Ultimately, a second opinion was sought, but then Dr. Villafana, the initial consulting physi michael, decided to operate, where he underwent incision and drainage and irrigation. The patient had b lood cultures, which were negative. He is discharged home with a complete course of outpatient antib iotics under the direction of Dr. Sheppard. The patient has some chronic kidney disease with a baseline creatinine of about 1.4; it annika to 1.7. Ultrasound showed mild right-sided hydro-thinning of the cortex. This is likely long-standing. His creatinine has been stable for about a decade. It was suggested outpatient followup with Urology to evaluate for right ureteral obstruction would be reasonable. /[id number]/MODL
--- NOTE | 2017-11-29 12:17 | PDCONSULT ---
Prop Sawyer Note: 11/26/16 Hand Surgery -POD 1 Mr. Donaldson was in good spirits and was very pleased with the results of surgery. He reported no pain and that he was using his hand normally. PE: Awake, alert, comfortable Dressing intact Fingers warm and perfused Sensation intact A/P: To follow up next week for suture removal. Mr. Donaldson was encouraged to call if any questions or concerns arise in the meantime.
== END 2017-11-26 15:00 | disposition home or self-care (01) | DRG 501 ==
LOC: F3E 11-23 00:14 → OBSVTOIN 11-23 16:14
PROVIDERS: ADMIT Student in an Organized Health Care Education/Training Program; ATTEND Student in an Organized Health Care Education/Training Program
PROC: 0L980ZX Drainage of Left Hand Tendon, Open Approach, Diagnostic (ICD-10-PCS; principal; 2017-11-24)
PROC: 0LB Tendons, Excision (ICD-10-PCS; principal; 2017-11-24)
DX: M65.142 Other infective (teno)synovitis, left hand (principal); L03.114 Cellulitis of left upper limb; M60.04 Infective myositis, hand and fingers; N40.0 Benign prostatic hyperplasia without lower urinary tract symptoms; I12.9 Hypertensive chronic kidney disease with stage 1 through stage 4 chronic kidney disease, or unspecified chronic kidney disease; N18.9 Chronic kidney disease, unspecified; N13.30 Unspecified hydronephrosis; Z98.1 Arthrodesis status
CPT/HCPCS: 96374; A9585; G0378; J0690; J1100; J1650; J2250; J2405; J2704; J3010; J3370